=== PATIENT | female | born 1935 | race Caucasian/White ===

== ENCOUNTER 2024-06-13 16:55 | Emergency (ER) | payer OTHER, SELFPAY ==
[2024-06-13 17:08] VITALS: BP 172/92
--- NOTE | 2024-06-13 17:14 | ED.GENMED ---
ED Provider Triage
<Blas Du Jr., PA-C - Last Filed: 06/14/24 18:24>
-
Patient seen by provider in Triage?: Seen in Triage
Attestation: A medical screening examination has been initiated by a qualified medical provider. Based on the assessment performed at this time, it has been determined that an emergent medical condition may exist and the patient has been informed
that further medical evaluation and possible additional diagnostic testing may be needed.
HPI: 88-year-old female presenting with concerns of a pop that she fell to her left knee when twisting earlier today. Difficulty ambulating since. Increased discomfort with flexion of the knee since as well. Here there is no obvious redness or
warmth no symptoms distally good range of motion strength of the ankle. Significant discomfort with movement of the knee no obvious joint laxity. Plan to start with x-ray pending additional assessment.
GENERAL: Alert , in no apparent distress
EYE: No visual abnormalities.
NECK: Trachea midline
ENT: No visible abnormalities.
LUNGS: No acute respiratory distress
NEUROLOGICAL: Alert and oriented
SKIN: Skin intact. No visible changes.
MUSCULOSKELETAL: Moving extremities normally
PSYCH: Normal and appropriate interaction.
This is a medical evaluation conducted in person to initiate diagnostic evaluation and provide initial therapeutics. Please see further documentation by the treating clinician.
History of Present Illness
<Blas Du Jr., PA-C - Last Filed: 06/14/24 18:24>
General
Chief Complaint: Musculo-Skeletal Complaint
Time Seen by Provider: 06/13/24 19:44
<FREDDY Escobedo - Last Filed: 06/13/24 22:51>
General
Source: patient
Exam Limitations: none
Nursing documentation reviewed up to this point in time: agreed with
History of Present Illness
History of Present Illness:
Patient is an 88-year-old female who presents to the ER for evaluation. Patient was turning and felt her pop behind her left knee and her left calf area this afternoon.
She has not taken anything for pain since. She is able to bear weight and has a walker at home.
Review of Systems
<FREDDY Escobedo - Last Filed: 06/13/24 22:51>
Review of Systems
Allergies reviewed?: Yes
All Other Systems: ROS reviewed and negative except as documented in HPI and ROS
Constitutional: Reports no symptoms
Musculoskeletal: Reports other (pain behind left knee/ posterior upper calf )
Skin: Reports no symptoms
Neurological: Reports no symptoms
Phy Exam
<FREDDY Escobedo - Last Filed: 06/13/24 22:51>
General Physical Exam
General Presentation: no apparent distress
General age: appears stated age
General Skin: warm and dry
General Habitus: elderly
General Mental: alert
General Hydration: appears well hydrated
Neurological Exam
Neurological Exam: alert and oriented x3
Musculoskeletal Exam
Musculoskeletal Exam: other (lle with strong pulses + tenderness to posterior calf strong distal pulses; mild mild discomfort with flexion extension but good range of motion no erythema or warmth)
Skin Exam
Skin Exam: normal color and warm/dry
Psychiatric Exam
Psychiatric Exam: normal mood/affect
Course
<Blas Du Jr., PA-C - Last Filed: 06/14/24 18:24>
Orders/Labs/Results
Orders:
Orders
06/13/24 17:14
CR Knee - Left 4 Or More View* Urgent
Comment:
Reason For Exam: knee pain pop
06/13/24 19:56
Acetaminophen [Tylenol] 650 mg PO NOW STA
Venous Doppler Lwr Ext Left [US Periph Venous LOWER Ext LT] Urgent
Comment:
Reason For Exam: pain posterior knee and calf
Vital Signs
Initial and Last Documented VS:
Initial Vital Signs
Temp Pulse Resp BP Pulse Ox
97.9 F 95 16 172/92 99
06/13/24 17:08 06/13/24 17:08 06/13/24 17:08 06/13/24 17:08 06/13/24 17:08
Last Documented Vital Signs
Temp Pulse Resp BP Pulse Ox
97.9 F 87 20 150/73 98
06/13/24 17:08 06/13/24 22:30 06/13/24 22:30 06/13/24 22:30 06/13/24 22:30
<FREDDY Escobedo - Last Filed: 06/13/24 22:51>
Orders/Labs/Results
Orders:
Orders
06/13/24 17:14
CR Knee - Left 4 Or More View* Urgent
Comment:
Reason For Exam: knee pain pop
06/13/24 19:56
Acetaminophen [Tylenol] 650 mg PO NOW STA
Venous Doppler Lwr Ext Left [US Periph Venous LOWER Ext LT] Urgent
Comment:
Reason For Exam: pain posterior knee and calf
Vital Signs
Initial and Last Documented VS:
Initial Vital Signs
Temp Pulse Resp BP Pulse Ox
97.9 F 95 16 172/92 99
06/13/24 17:08 06/13/24 17:08 06/13/24 17:08 06/13/24 17:08 06/13/24 17:08
Last Documented Vital Signs
Temp Pulse Resp BP Pulse Ox
97.9 F 87 20 150/73 98
06/13/24 17:08 06/13/24 22:30 06/13/24 22:30 06/13/24 22:30 06/13/24 22:30
<FREDDY Escobedo - Last Filed: 06/13/24 22:51>
MDM/Problems Addressed
Differential Diagnosis Includes:
Not limited to knee sprain strain, Gomez's cyst, less likely DVT
MDM/Problems Addressed:
X-rays and ultrasound unremarkable possible sprain strain. Patient has been using a walker and able to bear weight with a walker. I do feel that an immobilizer will increase fall risk. Discussed ice elevation Tylenol close outpatient follow-up
with family doctor/orthopedics.
<FREDDY Escobedo - Last Filed: 06/13/24 22:51>
*Radiology
Radiology exam reviewed: radiology read reviewed
*Pulse Oximetry
Patient hypoxic: no
*Critical Care Note
Total Time (30-74mins, 75-104mins- exclusive of procedures): Not Applicable
ED Attending Note
<Blas Du Jr., PA-C - Last Filed: 06/14/24 18:24>
-
Portions of this chart may have been created with voice recognition software.� Occasional wrong word or��sound alike� substitutions may have occurred due to the inherent limitations of voice recognition software.
Discharge Plan
Departure
Patient Disposition: Home (Routine Discharge)
Date of Disposition: 06/13/24
Time of Disposition: 22:38
Patient with high blood pressure during this ER visit?: Yes
Condition: Fair
Covid-19: Not Applicable
Discharge Problem:
Acute knee pain, Acute leg pain
Instructions: Muscle and Bone Pain (DC), Knee pain, BLOOD PRESSURE
Referrals:
Jeannette Guzman MD [Family Provider] -
Carlos Eduardo Goel MD [Active] -
Activity Restrictions/Additional Instructions:
As discussed your x-rays and ultrasound were negative. Please ice the affected area and keep elevated as much as possible.
take Tylenol as needed. Follow-up with family doctor in the next several days
and orthopedics if needed.
return if any worsening of symptoms
Interventions
Interventions:
*Risk Screen - Suicide Last Done: 06/13/24 17:08
*General Assessment Last Done: 06/13/24 17:08
*Neglect/Abuse Screening Last Done: 06/13/24 17:08
ED- Fall Risk Assessment Last Done: 06/13/24 23:05
*ED COVID-19 Vaccine History Last Done: 06/13/24 17:25
*Nursing Disposition Last Done: 06/13/24 23:05
ED-Musculoskeletal Assessment Last Done: 06/13/24 17:24
Discharge Date and Time
Discharge Date/Time: 06/13/24 23:06
Print Language: POLISH
[2024-06-13] MEDS: TYLENOL 650 MG PO (20:20)
[2024-06-13 22:30] VITALS: BP 150/73
== END 2024-06-13 23:06 | disposition home or self-care (01) ==
LOC: EMR 16:55
PROVIDERS: EMERGENCY PHYSICIAN Student in an Organized Health Care Education/Training Program; FAMILY PHYSICIAN Family Medicine
DX: M79.605 Pain in left leg (principal); M25.562 Pain in left knee; X50.1XXA Overexertion from prolonged static or awkward postures, initial encounter
CPT/HCPCS: 99283; 73564; 93971